=== PATIENT | male | born 1985 | race Two or more races ===

== ENCOUNTER 2022-05-09 20:34 | Emergency (ER) | payer MEDICAID, OTHER ==
[~2022-05-09] VITALS: Ht 167.6 cm; Wt 78.0 kg
[2022-05-09] MEDS ORDERED: TETANUS-DIPTH-ACEL PERTUSSIS 0.5ML SYR Tdap IM ONE (21:15)
[2022-05-10 01:00] VITALS: BP 144/103
== END 2022-05-10 01:07 | disposition home or self-care (01) ==
LOC: ER 20:34
DX: S61.011A Laceration without foreign body of right thumb without damage to nail, initial encounter (principal); W26.0XXA Contact with knife, initial encounter; Y93.G1 Activity, food preparation and clean up; Y92.89 Other specified places as the place of occurrence of the external cause; Y99.8 Other external cause status
CPT/HCPCS: 12001; 90471; 90715